=== PATIENT | male | born 1955 | race American Indian/Alaskan Native ===

== ENCOUNTER 2020-05-05 07:01 | Emergency (ER) | payer OTHER ==
[2020-05-05 07:09] VITALS: BP 156/86
[2020-05-05] MEDS ORDERED: KETOROLAC 60 MG/2 ML INJ IM ONE (07:20)
--- NOTE | 2020-05-05 07:23 | Emergency Department Report ---
ED ENT HPI - General Chief complaint: Sore Throat Stated complaint: THROAT PAIN Time Seen by Provider: 05/05/20 07:18 Source: patient Mode of arrival: Ambulatory Limitations: No Limitations - History of Present Illness Initial comments: 64-year-old male with a past medical history of diabetes and hyperlipidemia and tobacco use presents to the ER today complaint of 1 week history of sore throat. Patient reports pain with swallowing as a result he has been having difficulty tolerating p.o. fluids and liquids. He denies any drooling, difficulty opening his mouth. He denies any fever or chills. He denies any runny nose, nasal congestion or cough. He denies any ill contacts or recent travel. He reports no other symptoms at this time. MD complaint: sore throat, difficulty swallowing (sec to pain) -: Gradual, week(s) (1) - Related Data Previous Rx's Medication Instructions Recorded Last Taken Type Amoxicillin [Trimox CAP] 500 mg PO Q12H #20 capsule 05/05/20 Unknown Rx Ibuprofen [Motrin] 800 mg PO Q8HR PRN #30 tablet 05/05/20 Unknown Rx Allergies Allergy/AdvReac Type Severity Reaction Status Date / Time No Known Allergies Allergy Unverified 05/05/20 07:03 ED Dental HPI - General Chief complaint: Sore Throat Stated complaint: THROAT PAIN Time Seen by Provider: 05/05/20 07:18 Source: patient Mode of arrival: Ambulatory Limitations: No Limitations - Related Data Previous Rx's Medication Instructions Recorded Last Taken Type Amoxicillin [Trimox CAP] 500 mg PO Q12H #20 capsule 05/05/20 Unknown Rx Ibuprofen [Motrin] 800 mg PO Q8HR PRN #30 tablet 05/05/20 Unknown Rx Allergies Allergy/AdvReac Type Severity Reaction Status Date / Time No Known Allergies Allergy Unverified 05/05/20 07:03 ED Review of Systems ROS: Stated complaint: THROAT PAIN Other details as noted in HPI Comment: All other systems reviewed and negative Constitutional: denies: chills, fever Eyes: denies: eye pain, eye discharge, vision change ENT: throat pain. denies: ear pain, dental pain, hearing loss, epistaxis, congestion Respiratory: denies: cough, shortness of breath, wheezing Cardiovascular: denies: chest pain, palpitations Endocrine: no symptoms reported Gastrointestinal: denies: abdominal pain, nausea, diarrhea Musculoskeletal: denies: back pain, joint swelling, arthralgia Skin: denies: rash, lesions Neurological: denies: headache, weakness, paresthesias Psychiatric: denies: anxiety, depression Hematological/Lymphatic: denies: easy bleeding, easy bruising ED Past Medical Hx - Past Medical History Hx Diabetes: Yes - Surgical History Past Surgical History?: No - Social History Smoking Status: Current Every Day Smoker Substance Use Type: Alcohol - Medications Home Medications: Home Medications Medication Instructions Recorded Confirmed Last Taken Type Amoxicillin [Trimox CAP] 500 mg PO Q12H #20 capsule 05/05/20 Unknown Rx Ibuprofen [Motrin] 800 mg PO Q8HR PRN #30 tablet 05/05/20 Unknown Rx ED Physical Exam - General Limitations: No Limitations General appearance: alert, in no apparent distress - Head Head exam: Present: atraumatic, normocephalic, normal inspection - Eye Eye exam: Present: normal appearance, PERRL, EOMI Pupils: Present: normal accommodation - ENT ENT exam: Present: mucous membranes moist - Expanded ENT Exam Expanded Mouth exam: Absent: drooling, trismus, muffled voice, tongue normal, tongue elevation Throat exam: Positive: tonsillar erythema, tonsillomegaly. Negative: tonsillar exudate, R peritonsillar mass, L peritonsillar mass - Neck Neck exam: Present: normal inspection, full ROM, lymphadenopathy (Anterior cervical). Absent: tenderness, meningismus - Respiratory Respiratory exam: Absent: respiratory distress - Cardiovascular Cardiovascular Exam: Present: regular rate - GI/Abdominal GI/Abdominal exam: Absent: soft, distended, tenderness - Neurological Exam Neurological exam: Present: alert, oriented X3, CN II-XII intact, normal gait - Psychiatric Psychiatric exam: Present: normal affect, normal mood - Skin Skin exam: Present: intact ED Course Vital Signs 05/05/20 05/05/20 07:07 07:09 Temperature 99.3 F Pulse Rate 95 H Respiratory 20 Rate Blood Pressure 156/86 O2 Sat by Pulse 99 Oximetry ED Medical Decision Making - Medical Decision Making The patient is resting comfortably and is well-appearing and in no acute distress. There is no respiratory distress, no stridor and the mental status is normal. The neurological exam is normal, and there is no significant signs of dehydration. The history, exam, and the patient current condition does not suggest an infectious process such as meningitis, retropharyngeal abscess, epiglottitis, peritonsillar abscess, Abdifatah's angina, mastoiditis, orbital cellulitis, periorbital cellulitis, severe meningitis, malignant otitis externa, sepsis or any significant pathology warranting further testing, continued ED treatment, admission, consultation or any other evaluation at this time. The vital signs have been stable. The patient condition is stable and appropriate for discharge. Critical care attestation.: If time is entered above; I have spent that time in minutes in the direct care of this critically ill patient, excluding procedure time. ED Disposition Clinical Impression: Pharyngitis Disposition: - TO HOME OR SELFCARE Is pt being admited?: No Does the pt Need Aspirin: No Condition: Stable Instructions: Strep Throat, Adult, Pharyngitis, [id number] Additional Instructions: Take the motrin and the antibiotics as prescribed. Drink lots of fluids especially cold fluids will help throat. You can also do throat lozenges. Follow up with PCP in next few days. Return to ED if symptoms changes or worsens in anyway. Prescriptions: Ibuprofen [Motrin] 800 mg PO Q8HR PRN #30 tablet PRN Reason: Pain Amoxicillin [Trimox CAP] 500 mg PO Q12H #20 capsule Referrals: FRANCK GALLARDO MD [Staff Physician] - 3-5 Days Forms: Work/School Release Form(ED) Time of Disposition: 07:23
== END 2020-05-05 07:53 | disposition home or self-care (01) ==
LOC: ED 07:01
DX: J02.9 Acute pharyngitis, unspecified (principal); R13.10 Dysphagia, unspecified; E11.9 Type 2 diabetes mellitus without complications; F17.200 Nicotine dependence, unspecified, uncomplicated; Z79.1 Long term (current) use of non-steroidal anti-inflammatories (NSAID); Z79.2 Long term (current) use of antibiotics
CPT/HCPCS: 96372; 99282; J1885

== ENCOUNTER 2020-09-04 09:06 | Inpatient (IN) | payer OTHER ==
[2020-09-04] MEDS ORDERED: ASPIRIN 325 MG TAB PO ONE (09:33)
--- NOTE | 2020-09-04 09:51 | Emergency Department Report ---
ED Chest Pain HPI - General Chief Complaint: Chest Pain Stated Complaint: CHEST PAIN Time Seen by Provider: 09/04/20 09:35 Source: patient Mode of arrival: Ambulatory Limitations: No Limitations - History of Present Illness Initial Comments: This is a 64-year-old -[place] male who presents to the emergency department with a complaint of intermittent midsternal chest pain that has been going on over the past month. He says that the pain really increases with any type of exertion. When asked about associated shortness of breath, the patient says "well I am a smoker, so I am always short of breath." He denies any fever, cough, lower extremity swelling, nausea, vomiting, back pain, diaphoresis. He has a past medical history of hypertension, diabetes, high cholesterol. He denies any family history and his nuclear family of early heart attack. No recent travel or sick contacts at home. He has not taken anything for his symptoms prior to presentation. - Related Data Home Medications Medication Instructions Recorded Confirmed Last Taken AtorvaSTATin [Lipitor] 20 mg PO QHS 09/04/20 09/04/20 Unknown Benzocaine/Menthol [Sore Throat 1 each MM PRN PRN 09/04/20 09/04/20 Unknown Lozenges] Insulin Detemir [Levemir Flextouch] 22 unit SQ QHS 09/04/20 09/04/20 Unknown Insulin Lispro [Humalog Marco A 7 unit SQ TID 09/04/20 09/04/20 Unknown Kwikpen] Tamsulosin [Flomax] 0.4 mg PO QDAY 09/04/20 09/04/20 Unknown Allergies Allergy/AdvReac Type Severity Reaction Status Date / Time No Known Allergies Allergy Verified 09/04/20 09:59 Heart Score - HEART Score History: Moderately suspicious EKG: Non-specific Age: 45-65 Risk factors: > 3 risk factors or hx of atherosclerotic disease Troponin: < normal limit HEART Score: 5 - EKG Read Time Time EKG Completed: :17 EKG Read Time: 09:24 - Critical Actions Critical Actions: 4-6 pts:12-16.6% risk of adverse cardiac event. Should be admitted ED Review of Systems ROS: Stated complaint: CHEST PAIN Other details as noted in HPI Comment: All other systems reviewed and negative Constitutional: denies: chills, fever Eyes: denies: eye pain, vision change ENT: denies: ear pain, throat pain Respiratory: shortness of breath. denies: cough Cardiovascular: chest pain. denies: palpitations Gastrointestinal: denies: abdominal pain, vomiting Genitourinary: denies: dysuria, discharge Musculoskeletal: denies: back pain, arthralgia Skin: denies: rash, lesions Neurological: denies: headache, weakness ED Past Medical Hx - Past Medical History Previous Medical History?: Yes Hx Diabetes: Yes Additional medical history: High cholesterol - Surgical History Past Surgical History?: No - Social History Smoking Status: Current Every Day Smoker Substance Use Type: Alcohol - Medications Home Medications: Home Medications Medication Instructions Recorded Confirmed Last Taken Type AtorvaSTATin [Lipitor] 20 mg PO QHS 09/04/20 09/04/20 Unknown History Benzocaine/Menthol [Sore Throat 1 each MM PRN PRN 09/04/20 09/04/20 Unknown H istory Lozenges] Insulin Detemir [Levemir Flextouch] 22 unit SQ QHS 09/04/20 09/04/20 Unknown History Insulin Lispro [Humalog Marco A 7 unit SQ TID 09/04/20 09/04/20 Unknown History Kwikpen] Tamsulosin [Flomax] 0.4 mg PO QDAY 09/04/20 09/04/20 Unknown History ED Physical Exam - General Limitations: No Limitations - Other Other exam information: GENERAL: The patient is well-developed well-nourished. HENT: Normocephalic. Atraumatic. Patient has moist mucous membranes. EYES: Extraocular motions are intact. NECK: Supple. Trachea is midline. CHEST/LUNGS: Clear to auscultation. There is no respiratory distress noted. Chest pain is not reproducible to palpation of the chest wall. HEART/CARDIOVASCULAR: Regular. There is no tachycardia. There is no murmur. ABDOMEN: Abdomen is soft, nontender. Patient has normal bowel sounds. There is no abdominal distention. SKIN: Skin is warm and dry. NEURO: The patient is awake, alert, and oriented. The patient is cooperative. The patient has no focal neurologic deficits. Normal speech. MUSCULOSKELETAL: There is no tenderness or deformity. There is no limitation range of motion. ED Course Vital Signs 09/04/20 09/04/20 09/04/20 09:30 09:38 09:45 Temperature 98 F Pulse Rate 69 70 61 Respiratory 20 19 18 Rate Blood Pressure 186/101 179/97 O2 Sat by Pulse 98 98 97 Oximetry 09/04/20 09/04/20 09/04/20 10:01 10:15 10:56 Temperature Pulse Rate 65 72 Respiratory 12 11 L Rate Blood Pressure 179/97 171/81 171/81 O2 Sat by Pulse 95 97 98 Oximetry 09/04/20 09/04/20 09/04/20 11:01 11:15 11:31 Temperature Pulse Rate Respiratory Rate Blood Pressure 171/81 183/97 171/81 O2 Sat by Pulse 99 96 97 Oximetry 09/04/20 09/04/20 12:01 13:01 Temperature Pulse Rate Respiratory Rate Blood Pressure 170/84 147/90 O2 Sat by Pulse 97 97 Oximetry PAULINE score - Pauline Score Age > 65: (0) No Aspirin use within the Past 7 Days: (0) No 3 or more CAD Risk Factors: (1) Yes 2 or more Angina events in past 24 hrs: (1) Yes Known CAD with more than 50% Stenosis: (0) No Elevated Cardiac Markers: (0) No ST Deviation Greater than 0.5mm: (1) Yes PAULINE Score: 3 ED Medical Decision Making - Lab Data Result diagrams: 09/04/20 09:48 09/04/20 09:48 Lab Results 09/04/20 09/04/20 09/04/20 Range/Units 09:48 09:48 09:53 WBC 5.7 (4.5-11.0) K/mm3 RBC 4.98 (3.65-5.03) M/mm3 Hgb 16.1 H (11.8-15.2) gm/dl Hct 46.1 H (35.5-45.6) % MCV 93 (84-94) fl MCH 32 (28-32) pg MCHC 35 H (32-34) % RDW 13.9 (13.2-15.2) % Plt Count 196 (140-440) K/mm3 Lymph % (Auto) 34.4 (13.4-35.0) % [place] % (Auto) 7.3 (0.0-7.3) % Eos % (Auto) 2.2 (0.0-4.3) % Baso % (Auto) 1.3 (0.0-1.8) % Lymph # (Auto) 1.9 (1.2-5.4) K/mm3 [place] # (Auto) 0.4 (0.0-0.8) K/mm3 Eos # (Auto) 0.1 (0.0-0.4) K/mm3 Baso # (Auto) 0.1 (0.0-0.1) K/mm3 Seg Neutrophils % 54.8 (40.0-70.0) % Seg Neutrophils # 3.1 (1.8-7.7) K/mm3 PT 13.0 (12.2-14.9) Sec. INR 0.93 (0.87-1.13) Sodium 135 L (137-145) mmol/L Potassium 4.8 (3.6-5.0) mmol/L Chloride 99.2 (98-107) mmol/L Carbon Dioxide 30 (22-30) mmol/L Anion Gap 11 mmol/L BUN 16 (9-20) mg/dL Creatinine 1.0 (0.8-1.3) mg/dL Estimated GFR > 60 ml/min BUN/Creatinine Ratio 16 % Glucose 250 H (75-100) mg/dL Calcium 9.8 (8.4-10.2) mg/dL Total Bilirubin 0.30 (0.1-1.2) mg/dL AST 18 (5-40) units/L ALT 24 (7-56) units/L Alkaline Phosphatase 61 (35-129) units/L Troponin T < 0.010 (0.00-0.029) ng/mL Total Protein 6.8 (6.3-8.2) g/dL Albumin 4.5 (3.9-5) g/dL Albumin/Globulin Ratio 2.0 % 09/04/20 Range/Units 12:21 WBC (4.5-11.0) K/mm3 RBC (3.65-5.03) M/mm3 Hgb (11.8-15.2) gm/dl Hct (35.5-45.6) % MCV (84-94) fl MCH (28-32) pg MCHC (32-34) % RDW (13.2-15.2) % Plt Count (140-440) K/mm3 Lymph % (Auto) (13.4-35.0) % [place] % (Auto) (0.0-7.3) % Eos % (Auto) (0.0-4.3) % Baso % (Auto) (0.0-1.8) % Lymph # (Auto) (1.2-5.4) K/mm3 [place] # (Auto) (0.0-0.8) K/mm3 Eos # (Auto) (0.0-0.4) K/mm3 Baso # (Auto) (0.0-0.1) K/mm3 Seg Neutrophils % (40.0-70.0) % Seg Neutrophils # (1.8-7.7) K/mm3 PT (12.2-14.9) Sec. INR (0.87-1.13) Sodium (137-145) mmol/L Potassium (3.6-5.0) mmol/L Chloride (98-107) mmol/L Carbon Dioxide (22-30) mmol/L Anion Gap mmol/L BUN (9-20) mg/dL Creatinine (0.8-1.3) mg/dL Estimated GFR ml/min BUN/Creatinine Ratio % Glucose (75-100) mg/dL Calcium (8.4-10.2) mg/dL Total Bilirubin (0.1-1.2) mg/dL AST (5-40) units/L ALT (7-56) units/L Alkaline Phosphatase (35-129) units/L Troponin T < 0.010 (0.00-0.029) ng/mL Total Protein (6.3-8.2) g/dL Albumin (3.9-5) g/dL Albumin/Globulin Ratio % - EKG Data -: EKG Interpreted by Ct EKG shows normal: sinus rhythm, axis, intervals, QRS complexes, ST-T waves (T wave inversions to the anterolateral leads, mild ST depressions to the lateral leads) Rate: normal - EKG Data When compared to previous EKG there are: previous EKG unavailable Interpretation: other (Sinus rhythm at 68 bpm, normal axis, normal intervals. T wave inversions in the anterolateral leads. Mild ST depression to the high lateral leads.) - Radiology Data Radiology results: image reviewed interpreted by ma: Chest x-ray does not show any acute process. There are no pleural effusions, obvious pneumonia and there is no pneumothorax. No widened mediastinum - Medical Decision Making This patient presents to the emergency department with midsternal chest pain that has been going on intermittently over the past month but has worsened recently and also increases with exertion. EKG shows some ischemic changes with anterolateral T wave inversions and some mild high lateral ST depressions. No ST elevation [place]. Chest x-ray does not show any pneumonia, pleural effusions, pneumothorax, widened mediastinum, or any other acute process. Labs have thus far been mostly unremarkable including CBC, metabolic panel and negative troponins x2. Patient has a moderate heart and PAULINE score. He will be admitted to the hospital for further evaluation and treatment, most likely a stress test in the a.m., and was accepted for admission by the hospitalist, Dr. Boogie. Critical Care Time: No Critical care attestation.: If time is entered above; I have spent that time in minutes in the direct care of this critically ill patient, excluding procedure time. ED Disposition Clinical Impression: Angina at rest Chest pain Qualifiers: Chest pain type: unspecified Qualified Code(s): R07.9 - Chest pain, unspecified Hypertension Qualifiers: Hypertension type: primary hypertension Qualified Code(s): I10 - Essential (primary) hypertension Disposition: 09 OP ADMIT IP TO THIS HOSP Is pt being admited?: Yes Condition: Fair Instructions: Hypertension (ED) Time of Disposition: 14:31
[2020-09-04 10:12] LABS: Basophils # (Auto) 0.1 K/mm3 (0.0-0.1); Basophils % (Auto) 1.3 % (0.0-1.8); Eosinophils # (Auto) 0.1 K/mm3 (0.0-0.4); Eosinophils % (Auto) 2.2 % (0.0-4.3); Hematocrit 46.1 % (35.5-45.6); Hemoglobin 16.1 gm/dl (11.8-15.2); Lymphocytes # (Auto) 1.9 K/mm3 (1.2-5.4); Lymphocytes % (Auto) 34.4 % (13.4-35.0); Mean Corpuscular HGB Conc 35 % (32-34); Mean Corpuscular Volume 93 fl (84-94); Monocytes # (Auto) 0.4 K/mm3 (0.0-0.8); Monocytes % (Auto) 7.3 % (0.0-7.3); Platelet Count 196 K/mm3 (140-440); Red Blood Count 4.98 M/mm3 (3.65-5.03); Red Cell Distribution Width 13.9 % (13.2-15.2)
[2020-09-04 10:28] LABS: INR 0.93 (0.87-1.13)
[2020-09-04 10:33] LABS: Alanine Aminotransferase 24 units/L (7-56); Albumin 4.5 g/dL (3.9-5); BUN/Creatinine Ratio 16; Blood Urea Nitrogen 16 mg/dL (9-20); Calcium 9.8 mg/dL (8.4-10.2); Hemolysis Index 13
--- NOTE | 2020-09-04 10:38 | XRay Report ---
CHEST 2 VIEWS INDICATION / CLINICAL INFORMATION: chest pain. Chest pain with exertion. COMPARISON: None available. FINDINGS: SUPPORT DEVICES: None. HEART / MEDIASTINUM: No significant abnormality. LUNGS / PLEURA: No significant pulmonary or pleural abnormality. No pneumothorax. ADDITIONAL FINDINGS: No significant additional findings. IMPRESSION: 1. No acute findings. Signer Name: Viviana Alfredo MD Signed: 09/04/2020 10:34 AM Workstation Name: [id number]
[2020-09-04] MEDS ORDERED: hydrALAZINE 20 MG/1 ML INJ IV ONE (10:41)
[2020-09-04] MEDS ORDERED: MORPHINE 2 MG/1 ML INJ IV PRN (21:11)
[2020-09-04] MEDS ORDERED: ONDANSETRON 4 MG/2 ML INJ IV PRN (21:11)
[2020-09-04] MEDS ORDERED: ACETAMINOPHEN 325 MG TAB PO PRN (21:11)
[2020-09-04] MEDS ORDERED: oxyCODONE /ACETAMINOPHEN 5-325MG TAB PO PRN (21:11)
[2020-09-04] MEDS ORDERED: SODIUM CHLORIDE 0.9% 1000 ML 1,000 ML IV SCH (21:15)
--- NOTE | 2020-09-04 21:18 | History and Physical Report ---
History of Present Illness Date of examination: 09/04/20 Date of admission: 09/04/20 19:04 Chief complaint: Chest pain since a.m. History of present illness: 65-year-old -[place] male with history of hypertension, insulin- dependent diabetes and BPH comes in for intermittent chest pain since 1 month more so for today. Increases with any exertion. Also associated shortness of breath. Patient also bedtime smoker-I was 1 pack a day. No fever or chills. N o stents in the past. Chest pain is about 8 on a scale of 1-10. Nonradiating. No diaphoresis. No palpitations. Intermittent in nature. Heart Score - HEART Score History: Moderately suspicious EKG: Non-specific Age: 45-65 Risk factors: > 3 risk factors or hx of atherosclerotic disease Troponin: < normal limit HEART Score: 5 - Past Medical History Previous Medical History?: Yes --Diabetes: Yes --Hypertension --high cholesterol - Surgical History Past Surgical History?: No - Social History Smoking Status: Current Every Day Smoker Substance Use Type: Alcohol - Medications Home Medications: Home Medications Medication Instructions Recorded Confirmed Last Taken Type AtorvaSTATin [Lipitor] 20 mg PO QHS 09/04/20 09/04/20 Unknown History Benzocaine/Menthol [Sore Throat 1 each MM PRN PRN 09/04/20 09/04/20 Unknown History Lozenges] Insulin Detemir [Levemir Flextouch] 22 unit SQ QHS 09/04/20 09/04/20 Unknown History Insulin Lispro [Humalog Marco A 7 unit SQ TID 09/04/20 09/04/20 Unknown History Kwikpen] Tamsulosin [Flomax] 0.4 mg PO QDAY 09/04/20 09/04/20 Unknown History Review of Systems ROS: Stated complaint: CHEST PAIN Other details as noted in HPI Comment: All other systems reviewed and negative Constitutional: denies: chills, fever Eyes: denies: eye pain, vision change ENT: denies: ear pain, throat pain Respiratory: shortness of breath. denies: cough Cardiovascular: chest pain. denies: palpitations Gastrointestinal: denies: abdominal pain, vomiting Genitourinary: denies: dysuria, discharge Musculoskeletal: denies: back pain, arthralgia Skin: denies: rash, lesions Neurological: denies: headache, weakness Medications and Allergies Allergies Allergy/AdvReac Type Severity Reaction Status Date / Time No Known Allergies Allergy Verified 09/04/20 09:59 Home Medications Medication Instructions Recorded Confirmed Last Taken Type AtorvaSTATin [Lipitor] 20 mg PO QHS 09/04/20 09/04/20 Unknown History Benzocaine/Menthol [Sore Throat 1 each MM PRN PRN 09/04/20 09/04/20 Unknown Hist ory Lozenges] Insulin Detemir [Levemir Flextouch] 22 unit SQ QHS 09/04/20 09/04/20 Unknown H istory Insulin Lispro [Humalog Marco A 7 unit SQ TID 09/04/20 09/04/20 Unknown History Kwikpen] Tamsulosin [Flomax] 0.4 mg PO QDAY 09/04/20 09/04/20 Unknown History Exam - Constitutional Vitals: Temp Pulse Resp BP Pulse Ox 98 F 63 25 H 169/101 98 09/04/20 19:30 09/04/20 20:01 09/04/20 20:01 09/04/20 20:01 09/04/20 20:01 General appearance: Present: no acute distress, well-nourished - EENT Eyes: Present: PERRL ENT: hearing intact, clear oral mucosa - Neck Neck: Present: supple, normal ROM - Respiratory Respiratory effort: normal Respiratory: bilateral: CTA - Cardiovascular Heart rate: 78 Rhythm: regular Heart Sounds: Present: S1 & S2. Absent: rub, click - Extremities Extremities: no ischemia, pulses intact, pulses symmetrical, No edema Peripheral Pulses: within normal limits - Abdominal General gastrointestinal: Present: soft, non-tender, non-distended, normal bowel sounds Male genitourinary: Present: normal - Rectal Rectal Exam: deferred - Integumentary Integumentary: Present: clear, warm, dry - Musculoskeletal Musculoskeletal: gait normal, strength equal bilaterally - Psychiatric Psychiatric: appropriate mood/affect, intact judgment & insight - Neurologic Neurologic: CNII-XII intact, moves all extremities - Allied Health Allied health notes reviewed: nursing, case management HEART Score - HEART Score EKG: Non-specific Age: 45-65 Risk factors: > 3 risk factors or hx of atherosclerotic disease Troponin: Troponin T < 0.010 ng/mL (0.00-0.029) 09/04/20 15:25 Troponin: < normal limit - Critical Actions Critical Actions: 4-6 pts:12-16.6% risk of adverse cardiac event. Should be admitted Results - Labs CBC & Chem 7: 09/05/20 04:24 09/05/20 04:24 Labs: Laboratory Last Values WBC 5.7 K/mm3 (4.5-11.0) 09/04/20 09:48 RBC 4.98 M/mm3 (3.65-5.03) 09/04/20 09:48 Hgb 16.1 gm/dl (11.8-15.2) H 09/04/20 09:48 Hct 46.1 % (35.5-45.6) H 09/04/20 09:48 MCV 93 fl (84-94) 09/04/20 09:48 MCH 32 pg (28-32) 09/04/20 09:48 MCHC 35 % (32-34) H 09/04/20 09:48 RDW 13.9 % (13.2-15.2) 09/04/20 09:48 Plt Count 196 K/mm3 (140-440) 09/04/20 09:48 Lymph % (Auto) 34.4 % (13.4-35.0) 09/04/20 09:48 [place] % (Auto) 7.3 % (0.0-7.3) 09/04/20 09:48 Eos % (Auto) 2.2 % (0.0-4.3) 09/04/20 09:48 Baso % (Auto) 1.3 % (0.0-1.8) 09/04/20 09:48 Lymph # (Auto) 1.9 K/mm3 (1.2-5.4) 09/04/20 09:48 [place] # (Auto) 0.4 K/mm3 (0.0-0.8) 09/04/20 09:48 Eos # (Auto) 0.1 K/mm3 (0.0-0.4) 09/04/20 09:48 Baso # (Auto) 0.1 K/mm3 (0.0-0.1) 09/04/20 09:48 Seg Neutrophils % 54.8 % (40.0-70.0) 09/04/20 09:48 Seg Neutrophils # 3.1 K/mm3 (1.8-7.7) 09/04/20 09:48 PT 13.0 Sec. (12.2-14.9) 09/04/20 09:53 INR 0.93 (0.87-1.13) 09/04/20 09:53 Sodium 135 mmol/L (137-145) L 09/04/20 09:48 Potassium 4.8 mmol/L (3.6-5.0) 09/04/20 09:48 Chloride 99.2 mmol/L (98-107) 09/04/20 09:48 Carbon Dioxide 30 mmol/L (22-30) 09/04/20 09:48 Anion Gap 11 mmol/L 09/04/20 09:48 BUN 16 mg/dL (9-20) 09/04/20 09:48 Creatinine 1.0 mg/dL (0.8-1.3) 09/04/20 09:48 Estimated GFR > 60 ml/min 09/04/20 09:48 BUN/Creatinine Ratio 16 % 09/04/20 09:48 Glucose 250 mg/dL (75-100) H 09/04/20 09:48 Calcium 9.8 mg/dL (8.4-10.2) 09/04/20 09:48 Total Bilirubin 0.30 mg/dL (0.1-1.2) 09/04/20 09:48 AST 18 units/L (5-40) 09/04/20 09:48 ALT 24 units/L (7-56) 09/04/20 09:48 Alkaline Phosphatase 61 units/L (35-129) 09/04/20 09:48 Troponin T < 0.010 ng/mL (0.00-0.029) 09/04/20 15:25 Total Protein 6.8 g/dL (6.3-8.2) 09/04/20 09:48 Albumin 4.5 g/dL (3.9-5) 09/04/20 09:48 Albumin/Globulin Ratio 2.0 % 09/04/20 09:48 - Imaging and Cardiology EKG: report reviewed (Heart rate of 68/min sinus rhythm no acute ST-T wave changes. LVH by voltage criteriaChest x-ray) Chest x-ray: report reviewed (No acute findings) Agarwal/IV: Voiding Method Toilet Assessment and Plan Advance Directives: Yes (Full code) VTE prophylaxis?: Chemical Plan of care discussed with patient/family: Yes - Patient Problems (1) Acute coronary syndrome Current Visit: Yes Status: Acute Plan to address problem: Chest pain rule out [place] protocol Serial troponins Lexiscan in the morning (2) Hypertension Current Visit: Yes Status: Chronic Qualifiers: Hypertension type: primary hypertension Qualified Code(s): I10 - Essential (primary) hypertension Plan to address problem: Continue antihypertensives and adjust medications (3) IDDM (insulin dependent diabetes mellitus) Current Visit: Yes Status: Chronic Plan to address problem: Check hemoglobin A1c Continue home insulin and coverage (4) BPH (benign prostatic hyperplasia) Current Visit: Yes Status: Chronic Qualifiers: Lower urinary tract symptom presence: symptoms present Plan to address problem: Continue Flomax (5) DVT prophylaxis Current Visit: Yes Status: Acute Plan to address problem: On heparin and GI prophylaxis
[2020-09-04] MEDS ORDERED: INSULIN GLARGINE 100 UNITS/ML SUB-Q SCH (22:00)
[2020-09-04] MEDS ORDERED: NON-FORMULARY EACH (Insulin Detemir [Levemir Flextouch] 100 UNIT/ML Insuln.Pen) SQ SCH (22:00)
[2020-09-04] MEDS: TAMSULOSIN 0.4 MG CAP PO SCH (22:06)
[2020-09-04] MEDS: INSULIN LISPRO 100 UNIT/ML SUB-Q SCH (22:06)
[2020-09-04] MEDS: FAMOTIDINE 20 MG/2 ML INJ IV SCH (22:06)
[2020-09-04] MEDS: HEPARIN 5,000 UNIT/1 ML VIAL SUB-Q SCH (22:06)
[2020-09-05 06:03] LABS: Basophils % (Auto) 0.4 % (0.0-1.8); Eosinophils # (Auto) 0.1 K/mm3 (0.0-0.4); Eosinophils % (Auto) 2.5 % (0.0-4.3); Hematocrit 45.1 % (35.5-45.6); Hemoglobin 15.4 gm/dl (11.8-15.2); Lymphocytes % (Auto) 37.3 % (13.4-35.0); Mean Corpuscular HGB Conc 34 % (32-34); Mean Corpuscular Volume 92 fl (84-94); Monocytes # (Auto) 0.4 K/mm3 (0.0-0.8); Monocytes % (Auto) 6.7 % (0.0-7.3); Platelet Count 209 K/mm3 (140-440); Red Blood Count 4.89 M/mm3 (3.65-5.03); Red Cell Distribution Width 13.8 % (13.2-15.2)
[2020-09-05 06:26] LABS: Alanine Aminotransferase 20 units/L (7-56); Albumin 4.2 g/dL (3.9-5); BUN/Creatinine Ratio 17; Blood Urea Nitrogen 15 mg/dL (9-20); Calcium 9.1 mg/dL (8.4-10.2); Hemolysis Index 10
[2020-09-05] MEDS ORDERED: REGADENOSON 0.4 MG/5 ML INJ IV ONE (07:57)
[2020-09-05] MEDS: INSULIN LISPRO 100 UNIT/ML SUB-Q SCH ×4 (08:11→22:09)
--- NOTE | 2020-09-05 08:27 | Consultation ---
History of Present Illness Consult date: 09/05/20 Requesting physician: SHI GARCIA Consult reason: chest pain History of present illness: Pt is a 64-year-old AA male with a hx of HTN, poorly controlled DM, and tobacco abuse (1 PPD), who presented with complaints of intermittent chest pain x 1 month. Chest pain is substernal, non-radiating. Occurs with exertion. Associated with SOB. No additional cardiac complaints. Trop neg x 3. ECG reveals SR w/LVH and deep T wave inversions in anterior and lateral leads. CXR reveals no acute findings. Upson Classification III. Pt is previously unknown to our practice. No prior cardiac workup available for review. Past History Past Medical History: diabetes, hypertension Past Surgical History: denies: valve replacement, CABG, PTCA Social history: smoking. denies: alcohol abuse Family history: diabetes Medications and Allergies Allergies Allergy/AdvReac Type Severity Reaction Status Date / Time No Known Allergies Allergy Verified 09/04/20 09:59 Home Medications Medication Instructions Recorded Confirmed Last Taken Type AtorvaSTATin [Lipitor] 20 mg PO QHS 09/04/20 09/04/20 Unknown History Benzocaine/Menthol [Sore Throat 1 each MM PRN PRN 09/04/20 09/04/20 Unknown History Lozenges] Insulin Detemir [Levemir Flextouch] 22 unit SQ QHS 09/04/20 09/04/20 Unknown History Insulin Lispro [Humalog Marco A 7 unit SQ TID 09/04/20 09/04/20 Unknown History Kwikpen] Tamsulosin [Flomax] 0.4 mg PO QDAY 09/04/20 09/04/20 Unknown History Active Meds: Active Medications Acetaminophen (Acetaminophen 325 Mg Tab) 650 mg PO Q4H PRN PRN Reason: Pain MILD(1-3)/Fever >100.5/CHANEY Atorvastatin Calcium (Atorvastatin 20 Mg Tab) 20 mg PO QHS [facility] Last Admin: 09/04/20 22:06 Dose: 20 mg Documented by: Famotidine (Famotidine 20 Mg/2 Ml Inj) 20 mg IV BID [facility] Last Admin: 09/04/20 22:06 Dose: 20 mg Documented by: Heparin Sodium (Porcine) (Heparin 5,000 Unit/1 Ml Vial) 5,000 unit SUB-Q Q12HR [facility] Last Admin: 07/04/21 22:06 Dose: 5,000 unit Documented by: Sodium Chloride (Nacl 0.9% 1000 Ml) 1,000 mls @ 75 mls/hr IV DIRECT [facility] Last Admin: 09/04/20 22:07 Dose: 75 mls/hr Documented by: Insulin Glargine (Insulin Glargine 100 Units/Ml) 22 units SUB-Q QHS [facility] Last Admin: 09/04/20 22:20 Dose: 22 units Documented by: Insulin Human Lispro (Insulin Lispro 100 Unit/Ml) 0 unit SUB-Q ACHS [facility]; Protocol Last Admin: 09/05/20 08:11 Dose: Not Given Documented by: Morphine Sulfate (Morphine 2 Mg/1 Ml Inj) 2 mg IV Q4H PRN PRN Reason: Pain, Moderate (4-6) Ondansetron HCl (Ondansetron 4 Mg/2 Ml Inj) 4 mg IV Q8H PRN PRN Reason: Nausea And Vomiting Oxycodone/Acetaminophen (Oxycodone /Acetaminophen 5-325mg Tab) 1 tab PO Q6H PRN PRN Reason: Pain, Moderate (4-6) Sodium Chloride (Sodium Chloride 0.9% 10 Ml Flush Syringe) 10 ml IV BID [facility] Last Admin: 09/04/20 22:07 Dose: 10 ml Documented by: Sodium Chloride (Sodium Chloride 0.9% 10 Ml Flush Syringe) 10 ml IV PRN PRN PRN Reason: LINE FLUSH Tamsulosin HCl (Tamsulosin 0.4 Mg Cap) 0.4 mg PO QDAY@2200 [facility] Last Admin: 09/04/20 22:06 Dose: 0.4 mg Documented by: Review of Systems Constitutional: no fever, no chills Ears, nose, mouth and throat: no nasal congestion, no sore throat Cardiovascular: chest pain, shortness of breath, dyspnea on exertion, no orthopnea, no palpitations, no edema, no syncope, no lightheadedness, no paroxysmal nocturnal dyspnea, no claudication Respiratory: shortness of breath, dyspnea on exertion, no cough Gastrointestinal: no abdominal pain, no nausea, no vomiting Genitourinary Male: no dysuria, no flank pain Musculoskeletal: no neck stiffness, no neck pain Integumentary: no rash, no wounds Neurological: no head injury, no paralysis, no numbness, no tingling, no seizures, no syncope, no vertigo, no headaches Endocrine: no cold intolerance, no heat intolerance Hematologic/Lymphatic: no easy bruising, no easy bleeding Allergic/Immunologic: no anaphylaxis Physical Examination Last Vital Signs Temp 98.0 F 09/05/20 07:13 Pulse 79 09/05/20 07:13 Resp 18 09/05/20 07:13 BP 142/87 09/05/20 07:13 Pulse Ox 98 09/05/20 07:13 General appearance: no acute distress HEENT: Positive: EOMI, Normocephaly, Mucus Membranes Moist Neck: Positive: neck supple, trachea midline. Negative: JVD/HJR Cardiac: Positive: Reg Rate and Rhythm, S1/S2 Lungs: Positive: clear to auscultation Neuro: Positive: Grossly Intact Abdomen: Positive: Soft. Negative: Tender Skin: Negative: Rash Musculoskeletal: No Pain Extremities: Present: lower extr. pulses. Absent: edema Results 09/05/20 04:24 09/05/20 04:24 Cardiac Enzymes 09/04/20 09/05/20 Range/Units 09:48 04:24 AST 18 17 (5-40) units/L Coagulation 09/04/20 Range/Units 09:53 PT 13.0 (12.2-14.9) Sec. INR 0.93 (0.87-1.13) CBC 09/04/20 09/05/20 Range/Units 09:48 04:24 WBC 5.7 5.4 (4.5-11.0) K/mm3 RBC 4.98 4.89 (3.65-5.03) M/mm3 Hgb 16.1 H 15.4 H (11.8-15.2) gm/dl Hct 46.1 H 45.1 (35.5-45.6) % Plt Count 196 209 (140-440) K/mm3 Lymph # (Auto) 1.9 2.0 (1.2-5.4) K/mm3 [place] # (Auto) 0.4 0.4 (0.0-0.8) K/mm3 Eos # (Auto) 0.1 0.1 (0.0-0.4) K/mm3 Baso # (Auto) 0.1 0.0 (0.0-0.1) K/mm3 Comprehensive Metabolic Panel 09/04/20 09/05/20 Range/Units 09:48 04:24 Sodium 135 L 135 L (137-145) mmol/L Potassium 4.8 4.1 (3.6-5.0) mmol/L Chloride 99.2 100.4 (98-107) mmol/L Carbon Dioxide 30 26 (22-30) mmol/L BUN 16 15 (9-20) mg/dL Creatinine 1.0 0.9 (0.8-1.3) mg/dL Glucose 250 H 237 H (75-100) mg/dL Calcium 9.8 9.1 (8.4-10.2) mg/dL AST 18 17 (5-40) units/L ALT 24 20 (7-56) units/L Alkaline Phosphatase 61 59 (35-129) units/L Total Protein 6.8 5.9 L (6.3-8.2) g/dL Albumin 4.5 4.2 (3.9-5) g/dL - Imaging and Cardiology Echo: pending Cardiac cath: pending EKG: report reviewed, image reviewed - EKG Interpretation EKG: no acute changes EKG interpretations - EKG Sinus rhythms and dysrhythmias: sinus rhythm Chamber hypertrophy or enlargement: left ventricular hypertro Additional Comments: deep T wave inversions in anterior & lateral leads Assessment and Plan Echo pending. Lexiscan stress MPI this AM revealed a small inferior defect. Plan for LHC in AM. NPO after midnight. Will add BB and ACEI. Discontinue Amlodipine. Pt seen in conjunction with Dr. Polk, who agrees with the assessment and plan of care. - Patient Problems (1) Unstable angina Current Visit: Yes Status: Acute (2) Abnormal ECG Current Visit: Yes Status: Acute (3) Hypertension Current Visit: Yes Status: Chronic Qualifiers: Hypertension type: primary hypertension Qualified Code(s): I10 - Essential (primary) hypertension (4) IDDM (insulin dependent diabetes mellitus) Current Visit: Yes Status: Chronic (5) Tobacco abuse Current Visit: Yes Status: Chronic
[2020-09-05] MEDS: ASPIRIN 81 MG TAB CHEW PO SCH (10:27)
[2020-09-05] MEDS: METOPROLOL TARTRATE 25 MG TAB PO SCH ×2 (10:28→22:11)
[2020-09-05] MEDS: HEPARIN 5,000 UNIT/1 ML VIAL SUB-Q SCH ×2 (10:28→22:08)
[2020-09-05] MEDS: FAMOTIDINE 20 MG/2 ML INJ IV SCH ×2 (10:28→22:10)
[2020-09-05] MEDS: LISINOPRIL 20 MG TAB PO SCH (10:28)
--- NOTE | 2020-09-05 10:29 | Nuclear Medicine Report ---
APPROVED REPORT Exam: Nuclear Stress Test Indication: Chest pain Patient Location: [address] [place] [address] Room #: 451 Ht: 5 ft 11 in Wt: 212 lbs BSA: 2.16 m2 HR: 64 bpmBP: 165/93 mmHgBMI: 29.56 Medical History Medical History: Diabetes, HTN Stress Test Details Stress Test: Pharmacologic stress testing performed using 0.4 mg of regadenoson per 5 mL given IV over 10 seconds. Reason for pharmacologic stress test: physical limitation. HR Resting HR: 64 bpm Max HR Achieved: 100 bpm Max Heart Rate (APMHR): 158.666993 bpm Target HR (85% APMHR): 134.847031 bpm % of APMHR: 63.29 BP Resting BP: 165/93 mmHg Max BP: 198/104 mmHg ECG Resting ECG: SINUS RHYTHM WITH ST-T ABNORMALITIES, , Clear, Sinus Rhythm, Sinus Bradycardia Clinical Reason for Termination: Completed protocol Stress Symptoms: None NM EXAM: Myocardial Perfusion REST/STRESS Imaging Protocol: Rest Tc-99m/Stress Tc-99m 1 day Resting Data Rest SPECT myocardial perfusion imaging was performed in supine position 45 minutes following the intravenous injection of 10 mCi of Tc-99m Myoview. Time of rest injection: 0700 Pharmacologic Stress Pharmacologic stress test was performed by injecting Regadenoson 0.4 mg IV push followed by the intravenous injection of 28 mCi of Tc-99m Myoview. Time of stress injection: 0910 Gated Stress SPECT was performed 30 minutes after stress injection. Study Data TID = 1.10. Perfusion Nuclear Conclusion ECG Findings: negative for ischemia Clinical Findings: positive for ischemia Nuclear Findings: positive for ischemia Exercise Capacity: not assessed Left Ventricular Function: abnormal negative lexiscan ekg There is a small area of mildly reduced uptake in the mid segment of the inferior wall which is seen on the stress images and normalizes on the resting images. ef 44%, echo for correlation
--- NOTE | 2020-09-05 12:21 | Progress Note ---
Assessment and Plan - Patient Problems (1) Acute coronary syndrome Current Visit: Yes Status: Acute Plan to address problem: Patient with acute coronary syndrome. Symptoms consistent with coronary artery disease. Patient appears to be ruling out via cardiac isoenzymes no significant findings on EKG. Patient description of chest pain however very typical. Awaiting stress test results. Cardiology aware. Patient going for stress test today. (2) Unstable angina Current Visit: Yes Status: Acute Plan to address problem: We will treat as needed nitroglycerin. Await stress test results. Whether patient candidate for PCI (3) Hypertension Current Visit: Yes Status: Chronic Qualifiers: Hypertension type: primary hypertension Qualified Code(s): I10 - Essential (primary) hypertension Plan to address problem: Suboptimal control. Patient is currently not on any blood pressure medications. Will start losartan for renal protection. Require additional antibiotics because blood pressure is not controlled. May require additional beta-ewa depending on cardiac findings. (4) IDDM (insulin dependent diabetes mellitus) Current Visit: Yes Status: Chronic Plan to address problem: Blood sugar currently uncontrolled A1c 9.6 will increase Lantus to 26 units nightly. Patient is also be started on a high-dose statin as well. (5) Tobacco abuse Current Visit: Yes Status: Chronic Plan to address problem: Tobacco abuse greater than [id number] history. Patient has tried many things to stop smoking. Will give Chantix versus nicotine patch upon discharge. Subjective Date of service: 09/05/20 Principal diagnosis: Chest pain Interval history: Patient is a 62-year-old male with a history of hypertension diabetes, BPH chest pain x1 month as he described as being substernal. Also describes pressure associated with shortness of breath symptoms were worse with exertion. Patient stated he will climb up a ladder and developed chest pain. Go for light jog he developed chest pain. Last for approximately 20 minutes each time. Patient admitted for work-up of acute coronary syndrome. At present remains stable. Blood pressure is uncontrolled. Objective - Constitutional Vitals: Vital Signs - 12hr 09/05/20 09/05/20 09/05/20 03:53 07:13 08:30 Temperature 98.4 F 98.0 F Pulse Rate 68 79 Respiratory 18 18 Rate Blood Pressure 157/72 142/87 165/93 O2 Sat by Pulse 98 98 Oximetry 09/05/20 09/05/20 09/05/20 09:02 09:03 09:04 Temperature Pulse Rate Respiratory Rate Blood Pressure 164/96 180/100 191/101 O2 Sat by Pulse Oximetry 09/05/20 09/05/20 09:05 11:11 Temperature 98.0 F Pulse Rate 69 Respiratory 20 Rate Blood Pressure 179/104 168/93 O2 Sat by Pulse 96 Oximetry General appearance: Present: no acute distress, well-nourished - EENT Eyes: PERRL, EOM intact ENT: hearing intact, clear oral mucosa Ears: bilateral: normal - Neck Neck: supple, normal ROM - Respiratory Respiratory effort: normal Respiratory: bilateral: CTA - Breasts Breasts: normal - Cardiovascular Rhythm: regular Heart Sounds: Present: S1 & S2. Absent: gallop, rub Extremities: pulses intact, No edema, normal color, Full ROM - Gastrointestinal General gastrointestinal: Present: soft, non-tender, non-distended, normal bowel sounds - Genitourinary Male genitourinary: normal - Integumentary Integumentary: clear, warm, dry - Musculoskeletal Musculoskeletal: 1, strength equal bilaterally - Neurologic Neurologic: moves all extremities - Psychiatric Psychiatric: memory intact, appropriate mood/affect, intact judgment & insight - Labs CBC & Chem 7: 09/05/20 04:24 09/05/20 04:24 Labs: Abnormal lab results 09/04/20 09/05/20 09/05/20 Range/Units 21:42 04:24 04:24 Hgb 15.4 H (11.8-15.2) gm/dl Lymph % (Auto) 37.3 H (13.4-35.0) % Sodium 135 L (137-145) mmol/L Glucose 237 H (75-100) mg/dL POC Glucose 249 H (70-105) mg/dL Hemoglobin A1c (4-6) % Total Protein 5.9 L (6.3-8.2) g/dL 09/05/20 09/05/20 09/05/20 Range/Units 04:24 07:11 11:07 Hgb (11.8-15.2) gm/dl Lymph % (Auto) (13.4-35.0) % Sodium (137-145) mmol/L Glucose (75-100) mg/dL POC Glucose 230 H 290 H (70-105) mg/dL Hemoglobin A1c 9.0 H (4-6) % Total Protein (6.3-8.2) g/dL HEART Score - HEART Score EKG: Non-specific Age: 45-65 Risk factors: > 3 risk factors or hx of atherosclerotic disease Troponin: Troponin T < 0.010 ng/mL (0.00-0.029) 09/05/20 10:32 Troponin: < normal limit - Critical Actions Critical Actions: 4-6 pts:12-16.6% risk of adverse cardiac event. Should be admitted
[2020-09-05] MEDS: INSULIN GLARGINE 100 UNITS/ML SUB-Q SCH (22:09)
[2020-09-05] MEDS: TAMSULOSIN 0.4 MG CAP PO SCH (22:11)
[2020-09-06 05:13] LABS: Basophils % (Auto) 0.5 % (0.0-1.8); Eosinophils # (Auto) 0.1 K/mm3 (0.0-0.4); Eosinophils % (Auto) 2.2 % (0.0-4.3); Hematocrit 43.3 % (35.5-45.6); Hemoglobin 15.1 gm/dl (11.8-15.2); Lymphocytes # (Auto) 2.2 K/mm3 (1.2-5.4); Lymphocytes % (Auto) 37.1 % (13.4-35.0); Mean Corpuscular HGB Conc 35 % (32-34); Mean Corpuscular Volume 92 fl (84-94); Monocytes # (Auto) 0.5 K/mm3 (0.0-0.8); Monocytes % (Auto) 7.7 % (0.0-7.3); Platelet Count 186 K/mm3 (140-440); Red Blood Count 4.69 M/mm3 (3.65-5.03); Red Cell Distribution Width 13.7 % (13.2-15.2)
[2020-09-06 05:21] LABS: INR 1.01 (0.87-1.13)
[2020-09-06 05:44] LABS: BUN/Creatinine Ratio 20; Blood Urea Nitrogen 18 mg/dL (9-20); Calcium 9.2 mg/dL (8.4-10.2); Hemolysis Index 15
[2020-09-06] MEDS: INSULIN LISPRO 100 UNIT/ML SUB-Q SCH ×4 (07:50→22:32)
--- NOTE | 2020-09-06 09:14 | Progress Note ---
Assessment and Plan Assessment and plan: Patient is a 62-year-old male with a history of hypertension diabetes, BPH chest pain x1 month as he described as being substernal. Also describes pressure associated with shortness of breath symptoms were worse with exertion. Patient stated he will climb up a ladder and developed chest pain. Go for light jog he developed chest pain. Last for approximately 20 minutes each time. Patient admitted for work-up of acute coronary syndrome. Acute coronary syndrome Unstable angina Hypertension Insulin-dependent diabetes mellitus Tobacco abuse 09/06/2020. Lexiscan revealed small area of mildly reduced uptake in the mid segment of the inferior wall. Cardiology to perform LHC today. History Interval history: No new issues overnight. Hospitalist Physical - Constitutional Vitals: Temp Pulse Resp BP Pulse Ox 97.9 F 69 20 131/70 99 09/06/20 05:56 09/06/20 05:56 09/06/20 05:56 09/06/20 05:56 09/06/20 05:56 General appearance: Present: no acute distress - EENT Eyes: Present: PERRL, EOM intact ENT: hearing intact, clear oral mucosa, dentition normal - Neck Neck: Present: supple, normal ROM - Respiratory Respiratory effort: normal Respiratory: bilateral: CTA - Cardiovascular Rhythm: regular Heart Sounds: Present: S1 & S2. Absent: gallop, rub - Extremities Extremities: no ischemia, No edema, Full ROM - Abdominal General gastrointestinal: soft, non-tender, non-distended, normal bowel sounds - Integumentary Integumentary: Present: clear, warm, dry - Neurologic Neurologic: CNII-XII intact, moves all extremities HEART Score - HEART Score EKG: Non-specific Age: 45-65 Risk factors: > 3 risk factors or hx of atherosclerotic disease Troponin: Troponin T < 0.010 ng/mL (0.00-0.029) 09/05/20 10:32 Troponin: < normal limit - Critical Actions Critical Actions: 4-6 pts:12-16.6% risk of adverse cardiac event. Should be admitted Results - Labs CBC & Chem 7: 09/06/20 04:12 09/06/20 04:12 Labs: Laboratory Last Values WBC 5.8 K/mm3 (4.5-11.0) 09/06/20 04:12 RBC 4.69 M/mm3 (3.65-5.03) 09/06/20 04:12 Hgb 15.1 gm/dl (11.8-15.2) 09/06/20 04:12 Hct 43.3 % (35.5-45.6) 09/06/20 04:12 MCV 92 fl (84-94) 09/06/20 04:12 MCH 32 pg (28-32) 09/06/20 04:12 MCHC 35 % (32-34) H 09/06/20 04:12 RDW 13.7 % (13.2-15.2) 09/06/20 04:12 Plt Count 186 K/mm3 (140-440) 09/06/20 04:12 Lymph % (Auto) 37.1 % (13.4-35.0) H 09/06/20 04:12 [place] % (Auto) 7.7 % (0.0-7.3) H 09/06/20 04:12 Eos % (Auto) 2.2 % (0.0-4.3) 09/06/20 04:12 Baso % (Auto) 0.5 % (0.0-1.8) 09/06/20 04:12 Lymph # (Auto) 2.2 K/mm3 (1.2-5.4) 09/06/20 04:12 [place] # (Auto) 0.5 K/mm3 (0.0-0.8) 09/06/20 04:12 Eos # (Auto) 0.1 K/mm3 (0.0-0.4) 09/06/20 04:12 Baso # (Auto) 0.0 K/mm3 (0.0-0.1) 09/06/20 04:12 Seg Neutrophils % 52.5 % (40.0-70.0) 09/06/20 04:12 Seg Neutrophils # 3.1 K/mm3 (1.8-7.7) 09/06/20 04:12 PT 13.8 Sec. (12.2-14.9) 09/06/20 04:12 INR 1.01 (0.87-1.13) 09/06/20 04:12 Sodium 136 mmol/L (137-145) L 09/06/20 04:12 Potassium 4.2 mmol/L (3.6-5.0) 09/06/20 04:12 Chloride 100.8 mmol/L (98-107) 09/06/20 04:12 Carbon Dioxide 27 mmol/L (22-30) 09/06/20 04:12 Anion Gap 12 mmol/L 09/06/20 04:12 BUN 18 mg/dL (9-20) 09/06/20 04:12 Creatinine 0.9 mg/dL (0.8-1.3) 09/06/20 04:12 Estimated GFR > 60 ml/min 09/06/20 04:12 BUN/Creatinine Ratio 20 % 09/06/20 04:12 Glucose 227 mg/dL (75-100) H 09/06/20 04:12 POC Glucose 219 mg/dL (70-105) H 09/06/20 07:51 Hemoglobin A1c 9.0 % (4-6) H 09/05/20 04:24 Calcium 9.2 mg/dL (8.4-10.2) 09/06/20 04:12 Total Bilirubin 0.20 mg/dL (0.1-1.2) 09/05/20 04:24 AST 17 units/L (5-40) 09/05/20 04:24 ALT 20 units/L (7-56) 09/05/20 04:24 Alkaline Phosphatase 59 units/L (35-129) 09/05/20 04:24 Troponin T < 0.010 ng/mL (0.00-0.029) 09/05/20 10:32 Total Protein 5.9 g/dL (6.3-8.2) L 09/05/20 04:24 Albumin 4.2 g/dL (3.9-5) 09/05/20 04:24 Albumin/Globulin Ratio 2.5 % 09/05/20 04:24 Agarwal/IV: Voiding Method Toilet Active Medications - Current Medications Current Medications: Generic Name Dose Route Start Last Admin Trade Name Freq PRN Reason Stop Dose Admin Acetaminophen 650 mg 09/04/20 21:11 Acetaminophen 325 Mg Tab PO Q4H PRN Pain MILD(1-3)/Fever >100.5/CHANEY Aspirin 81 mg 09/05/20 10:00 09/05/20 10:27 Aspirin 81 Mg Tab Chew PO 81 mg QDAY [facility] Administration Atorvastatin Calcium 40 mg 09/05/20 22:00 09/05/20 22:11 Atorvastatin 20 Mg Tab PO 40 mg QHS [facility] Administration Famotidine 20 mg 09/04/20 22:00 09/05/20 22:10 Famotidine 20 Mg/2 Ml Inj IV 20 mg BID [facility] Administration Heparin Sodium (Porcine) 5,000 unit 09/04/20 22:00 09/05/20 22:08 Heparin 5,000 Unit/1 Ml Vial SUB-Q Not Given Q12HR [facility] Insulin Glargine 28 units 09/05/20 12:22 09/05/20 22:09 Insulin Glargine 100 Units/Ml SUB-Q Not Given QHS [facility] Insulin Human Lispro 0 unit 09/04/20 22:00 09/06/20 07:50 Insulin Lispro 100 Unit/Ml SUB-Q Not Given [facility] Protocol Lisinopril 20 mg 09/05/20 10:00 09/05/20 10:28 Lisinopril 20 Mg Tab PO 20 mg QDAY [facility] Administration Metoprolol Tartrate 25 mg 09/05/20 10:00 09/05/20 22:11 Metoprolol Tartrate 25 Mg Tab PO 25 mg BID [facility] Administration Morphine Sulfate 2 mg 09/04/20 21:11 Morphine 2 Mg/1 Ml Inj IV Q4H PRN Pain, Moderate (4-6) Ondansetron HCl 4 mg 09/04/20 21:11 Ondansetron 4 Mg/2 Ml Inj IV Q8H PRN Nausea And Vomiting Oxycodone/Acetaminophen 1 tab 09/04/20 21:11 Oxycodone /Acetaminophen 5-325mg Tab PO Q6H PRN Pain, Moderate (4-6) Sodium Chloride 10 ml 09/04/20 22:00 09/05/20 22:12 Sodium Chloride 0.9% 10 Ml Flush Syringe IV 10 ml BID [facility] Administration Sodium Chloride 10 ml 09/04/20 21:11 Sodium Chloride 0.9% 10 Ml Flush Syringe IV PRN PRN LINE FLUSH Tamsulosin HCl 0.4 mg 09/04/20 22:00 09/05/20 22:11 Tamsulosin 0.4 Mg Cap PO 0.4 mg QDAY@2200 [facility] Administration
[2020-09-06] MEDS: HEPARIN 5,000 UNIT/1 ML VIAL SUB-Q SCH (10:00)
[2020-09-06] MEDS: ASPIRIN 81 MG TAB CHEW PO SCH (10:30)
[2020-09-06] MEDS: SODIUM CHLORIDE 0.9% 500 ML 500 ML IV SCH ×2 (10:46→11:25)
--- NOTE | 2020-09-06 11:04 | Progress Note ---
Assessment and Plan Coronary Artery Disease with Unstable Angina * Echo pending. * LHC (09/06/2020): Severe mid circumflex artery stenosis. Global nonobstructive mild coronary artery disease. Elevated end-diastolic pressure but normal left ventricular systolic function. Patient is scheduled for repeat LHC with planned angioplasty of the mid circumflex in a.m. * LHC in am. NPO after midnight. * Initiate heparin drip per standard intensity titration. Heparin drip should be discontinued in a.m. approximately 5 AM, 4 hours prior to planned LHC. * Continue beta-ewa and GERARDO inhibitor. Pt seen in conjunction with Dr. Sterling, who agrees with the assessment and plan of care. - Patient Problems (1) Unstable angina Current Visit: Yes Status: Acute (2) Abnormal ECG Current Visit: Yes Status: Acute (3) Hypertension Current Visit: Yes Status: Chronic Qualifiers: Hypertension type: primary hypertension Qualified Code(s): I10 - Essential (primary) hypertension (4) IDDM (insulin dependent diabetes mellitus) Current Visit: Yes Status: Chronic (5) Tobacco abuse Current Visit: Yes Status: Chronic (6) Coronary Artery Disease Current Visit: Yes Status: Chronic Subjective Date of service: 09/06/20 Principal diagnosis: Chest pain Interval history: Patient is currently resting in bed. No shortness of breath or chest pain overnight Telemetry reviewed: Sinus rhythm 64. No events Objective Last Vital Signs Temp 97.9 F 09/06/20 07:51 Pulse 60 09/06/20 07:51 Resp 18 09/06/20 07:51 BP 139/84 09/06/20 07:51 Pulse Ox 97 09/06/20 07:51 - Physical Examination General: No Apparent Distress HEENT: Positive: EOMI, Normocephaly, Mucus Membranes Moist Neck: Positive: neck supple, trachea midline. Negative: JVD/HJR Cardiac: Positive: Reg Rate and Rhythm, S1/S2 Lungs: Positive: clear to auscultation, Normal Breath Sounds Neuro: Positive: Grossly Intact Abdomen: Positive: Soft. Negative: Tender Skin: Negative: Rash Musculoskeletal: No Pain Extremities: Present: upper extr. pulses, lower extr. pulses. Absent: edema - Labs and Meds Coagulation 09/06/20 Range/Units 04:12 PT 13.8 (12.2-14.9) Sec. INR 1.01 (0.87-1.13) CBC 09/06/20 Range/Units 04:12 WBC 5.8 (4.5-11.0) K/mm3 RBC 4.69 (3.65-5.03) M/mm3 Hgb 15.1 (11.8-15.2) gm/dl Hct 43.3 (35.5-45.6) % Plt Count 186 (140-440) K/mm3 Lymph # (Auto) 2.2 (1.2-5.4) K/mm3 [place] # (Auto) 0.5 (0.0-0.8) K/mm3 Eos # (Auto) 0.1 (0.0-0.4) K/mm3 Baso # (Auto) 0.0 (0.0-0.1) K/mm3 Comprehensive Metabolic Panel 09/06/20 Range/Units 04:12 Sodium 136 L (137-145) mmol/L Potassium 4.2 (3.6-5.0) mmol/L Chloride 100.8 (98-107) mmol/L Carbon Dioxide 27 (22-30) mmol/L BUN 18 (9-20) mg/dL Creatinine 0.9 (0.8-1.3) mg/dL Glucose 227 H (75-100) mg/dL Calcium 9.2 (8.4-10.2) mg/dL - Imaging and Cardiology EKG: report reviewed, image reviewed Echo: pending Cardiac cath: pending, report reviewed ([facility] (09/06/2020): Severe mid circumflex artery stenosis. Global nonobstructive mild coronary artery disease. Elevated end-diastolic pressure but normal left ventricular systolic function. Patient is scheduled for repeat [facility] with angioplasty of the mid circumflex in a.m.) - Telemetry EKG Rhythm: Sinus Rhythm - EKG Sinus rhythms and dysrhythmias: sinus rhythm Chamber hypertrophy or enlargement: left ventricular hypertro
[2020-09-06] MEDS ORDERED: HEPARIN/NS 5000 UNIT/500ML 1,000 ML IR ONE (11:05)
[2020-09-06] MEDS ORDERED: VERAPAMIL 5 MG/2 ML INJ ONE (11:06)
[2020-09-06] MEDS ORDERED: LIDOCAINE (2%) 20 MG/1 ML VIAL 20 ML MDV INFILTRATI ONE (11:06)
[2020-09-06] MEDS ORDERED: NITROGLYCERIN SYRINGE 0 ML ONE (11:07)
[2020-09-06] MEDS: fentaNYL 100 MCG/2 ML INJ ONE ×2 (11:25→11:30)
[2020-09-06] MEDS: MIDAZOLAM 2 MG/2 ML INJ ONE ×2 (11:25→11:30)
--- NOTE | 2020-09-06 11:29 | Discharge Summary ---
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 Also describes pressure associated with shortness of breath symptoms were worse with exertion. Patient stated he will climb up a ladder and developed chest pain. Go for light jog he developed chest pain. Last for approximately 20 minutes each time. Patient admitted for work-up of acute coronary syndrome, unstable angina, hypertension, insulin-dependent diabetes mellitus and tobacco abuse. Trop neg x 3. ECG reveals SR w/LVH and deep T wave inversions in anterior and lateral leads. CXR reveals no acute findings. Patient underwent Lexiscan which revealed small area of mildly reduced uptake in the mid segment of the inferior wall. Cardiology opted to perform LHC today. If LHC is negative, patient will likely discharge home with follow-up with PCP and cardiology as an outpatient. Diagnosis likely GERD if LHC negative. Disposition: DC-01 TO HOME OR SELFCARE Final Discharge Diagnosis (Prints w/discharge instructions): Acute coronary syndrome, HTN, poorly controlled DM, and tobacco abuse (1 PPD), hypertension Core Measure Documentation - Palliative Care Palliative Care/ Comfort Measures: Not Applicable - Core Measures Any of the following diagnoses?: none Exam - Constitutional Vitals: Temp Pulse Resp BP Pulse Ox 97.9 F 60 18 139/84 97 09/06/20 07:51 09/06/20 07:51 09/06/20 07:51 09/06/20 07:51 09/06/20 07:51 General appearance: Present: no acute distress, well-nourished - EENT Eyes: Present: PERRL ENT: hearing intact, clear oral mucosa - Neck Neck: Present: supple, normal ROM - Respiratory Respiratory effort: normal Respiratory: bilateral: CTA - Cardiovascular Heart Sounds: Present: S1 & S2. Absent: rub, click - Extremities Extremities: pulses symmetrical, No edema Peripheral Pulses: within normal limits - Abdominal General gastrointestinal: Present: soft, non-tender, non-distended, normal bowel sounds Male genitourinary: Present: normal - Integumentary Integumentary: Present: clear, warm, dry - Musculoskeletal Musculoskeletal: gait normal, strength equal bilaterally - Psychiatric Psychiatric: appropriate mood/affect, intact judgment & insight - Neurologic Neurologic: CNII-XII intact, moves all extremities Plan Activity: advance as tolerated Weight Bearing Status: Weight Bear as Tolerated Diet: low fat, low cholesterol, low salt Follow up with: PRIMARY CARE, [Primary Care Provider] - 3-5 Days Prescriptions: Aspirin [Aspirin BABY CHEW TAB] 81 mg PO QDAY #30 tab.chew Insulin Glargine [Lantus VIAL] 28 units SUB-Q QHS 30 Days units AtorvaSTATin [Lipitor] 40 mg PO QHS #30 tablet Metoprolol [Lopressor TAB] 25 mg PO BID #60 tablet lisinopriL [Zestril TAB] 20 mg PO QDAY #30 tablet
[2020-09-06] MEDS: HEPARIN 10,000 UNITS/10 ML VIAL ONE (11:32)
[2020-09-06] MEDS ORDERED: HEPARIN/ 0.45% NACL DRIP 25,000 UNIT/500 ML BAG ONE (11:53)
--- NOTE | 2020-09-06 12:35 | Cardiac Catherization Report ---
DATE OF SERVICE: 09/06/2020 INDICATIONS: The patient is a 64-year-old -[place] gentleman with history of hypertension, uncontrolled diabetes mellitus, who was admitted with chest pain and was noted to have mildly abnormal stress nuclear imaging. Hence, scheduled for cardiac catheterization. The patient is also a chronic smoker. Because of his multiple coronary risk factors and abnormal nuclear stress testing with symptoms, he is scheduled for cardiac catheterization for definitive diagnosis and treatment. The patient is aware of the procedure, potential complications and the alternatives of therapy available. DESCRIPTION OF PROCEDURE: The patient was brought to the catheterization laboratory in a fasting condition. The patient was evaluated for moderate sedation and was felt to be an appropriate candidate for moderate sedation. Received IV Versed and fentanyl starting at 11:25 a.m. Subsequently, right radial local anesthesia was given in the right wrist area and right radial artery access was obtained using 21-gauge arterial puncture needle. A 5-British sheath was introduced. The patient received 5 mg of intra-arterial verapamil and 3000 units of intravenous heparin. Subsequently, a 5-British multipurpose catheter was used to obtain the angiograms of the left coronary artery in multiple views followed by angiograms of the right coronary artery and left ventriculogram done in [place]LEY projection using hand injection. After completing the procedure, it was felt the patient would benefit from intervention of the circumflex artery, which will be scheduled electively for tomorrow. The patient's sedation started at 11:25 a.m. and ended at 11:40 a.m. The patient tolerated the IV sedation well. At the end of the procedure, the patient was breathing normally, communicating normally with no focal deficits. Following findings were noted. HEMODYNAMICS: 1. Opening aortic pressure, aortic pressure 157/87. Left ventricular pressure 157/38. No gradient across the aortic valve. Estimated ejection fraction 50-55%. 2. Left ventriculogram done in [place] projection showed normal sized left ventricle with normal contractility. End-diastolic and end-systolic volumes are normal. Significantly elevated end diastolic pressure of 38 mm noted. Right coronary artery dominant vessel shows very mild irregularities. 3. Left coronary artery arises normally from left coronary cusp. Left main is very long, dividing into LAD and circumflex arteries. The LAD and its branches show minimal irregularities. Otherwise, circumflex artery shows a focal mid lesion approaching 99% at a bend. Rest of the vessel shows no significant disease. 4. Collaterals: None. FINAL IMPRESSION: Severe mid circumflex artery stenosis with the rest of the coronaries showing mild disease and elevated end-diastolic pressure, but normal left ventricular systolic function, considering the above angiographic pictures, it was felt the patient would benefit from intervention of the circumflex artery. However, considering the location of the lesion and coronary anatomy, it was decided to bring him back next day for further intervention. The same was explained to the patient. He is agreeable with plan. TID: [id number] RECEIPT: [id number] JONI/MARLA MADSEN
[2020-09-06] MEDS ORDERED: HEPARIN/ 0.45% NACL DRIP 25,000 UNIT/500 ML BAG IV SCH (13:00)
[2020-09-06] MEDS ORDERED: HEPARIN 10,000 UNITS/10 ML VIAL IV PRN ×2 (13:00→14:00)
[2020-09-06] MEDS ORDERED: ASPIRIN EC 325 MG TAB PO ONE (13:13)
[2020-09-06] MEDS ORDERED: HEPARIN 10,000 UNITS/10 ML VIAL IV ONE (13:17)
[2020-09-06] MEDS: LISINOPRIL 20 MG TAB PO SCH (13:45)
[2020-09-06] MEDS: METOPROLOL TARTRATE 25 MG TAB PO SCH ×2 (13:45→22:30)
[2020-09-06] MEDS: FAMOTIDINE 20 MG/2 ML INJ IV SCH ×2 (13:45→22:33)
[2020-09-06] MEDS ORDERED: SODIUM CHLORIDE 0.9% 500 ML 500 ML IV SCH (14:00)
[2020-09-06 20:24] LABS: Partial Thromboplastin Time 48.5 Sec. (24.2-36.6)
[2020-09-06 20:25] LABS: INR 1.01 (0.87-1.13)
[2020-09-06] MEDS ORDERED: hydrALAZINE 20 MG/1 ML INJ IV ONE (21:56)
[2020-09-06] MEDS: TAMSULOSIN 0.4 MG CAP PO SCH (22:30)
[2020-09-06] MEDS: INSULIN GLARGINE 100 UNITS/ML SUB-Q SCH (22:44)
[2020-09-07 04:28] LABS: Basophils % (Auto) 0.4 % (0.0-1.8); Eosinophils # (Auto) 0.2 K/mm3 (0.0-0.4); Eosinophils % (Auto) 2.4 % (0.0-4.3); Hematocrit 44.3 % (35.5-45.6); Hemoglobin 15.4 gm/dl (11.8-15.2); Lymphocytes # (Auto) 2.3 K/mm3 (1.2-5.4); Lymphocytes % (Auto) 35.6 % (13.4-35.0); Mean Corpuscular HGB Conc 35 % (32-34); Mean Corpuscular Volume 92 fl (84-94); Monocytes # (Auto) 0.5 K/mm3 (0.0-0.8); Monocytes % (Auto) 7.7 % (0.0-7.3); Platelet Count 193 K/mm3 (140-440); Red Blood Count 4.84 M/mm3 (3.65-5.03); Red Cell Distribution Width 13.6 % (13.2-15.2)
[2020-09-07 04:36] LABS: INR 0.93 (0.87-1.13)
[2020-09-07 04:38] LABS: BUN/Creatinine Ratio 18; Blood Urea Nitrogen 14 mg/dL (9-20); Calcium 8.6 mg/dL (8.4-10.2); Hemolysis Index 13
[2020-09-07] MEDS ORDERED: SODIUM CHLORIDE 0.9% 500 ML 500 ML ONE (07:17)
[2020-09-07] MEDS ORDERED: ASPIRIN EC 325 MG TAB PO SCH (07:30)
[2020-09-07] MEDS ORDERED: SODIUM CHLORIDE 0.9% 500 ML 500 ML IV SCH (08:00)
[2020-09-07] MEDS ORDERED: HEPARIN/NS 5000 UNIT/500ML 1,000 ML IR ONE (08:01)
[2020-09-07] MEDS ORDERED: MIDAZOLAM 2 MG/2 ML INJ ONE (08:01)
[2020-09-07] MEDS ORDERED: NITROGLYCERIN SYRINGE 0 ML ONE (08:02)
[2020-09-07] MEDS: HEPARIN 10,000 UNITS/10 ML VIAL ONE ×3 (08:30→09:04)
[2020-09-07] MEDS: MIDAZOLAM 2 MG/2 ML INJ ONE ×3 (08:30→08:54)
[2020-09-07] MEDS: fentaNYL 100 MCG/2 ML INJ ONE ×3 (08:30→08:54)
[2020-09-07] MEDS: LIDOCAINE (2%) 20 MG/1 ML VIAL 20 ML MDV INFILTRATI ONE ×3 (08:30→08:53)
[2020-09-07] MEDS: VERAPAMIL 5 MG/2 ML INJ ONE ×2 (08:31→08:54)
[2020-09-07] MEDS ORDERED: HEPARIN/NS 5000 UNIT/500ML 500 ML IR ONE (08:33)
--- NOTE | 2020-09-07 08:37 | Progress Note ---
Assessment and Plan Assessment and plan: Patient is a 62-year-old male with a history of hypertension diabetes, BPH chest pain x1 month as he described as being substernal. Also describes pressure associated with shortness of breath symptoms were worse with exertion. Patient stated he will climb up a ladder and developed chest pain. Go for light jog he developed chest pain. Last for approximately 20 minutes each time. Patient admitted for work-up of acute coronary syndrome. Acute coronary syndrome Unstable angina Hypertension Insulin-dependent diabetes mellitus Tobacco abuse 09/06/2020. Lexiscan revealed small area of mildly reduced uptake in the mid segment of the inferior wall. Cardiology performed LHC which revealed Severe mid circumflex artery stenosis. Global nonobstructive mild coronary artery disease. Elevated end-diastolic pressure but normal left ventricular systolic function. Patient is scheduled for repeat LHC with planned angioplasty of the mid circumflex in a.m. History Interval history: No new issues overnight. Hospitalist Physical - Constitutional Vitals: Temp Pulse Resp BP Pulse Ox 98.0 F 68 18 149/78 97 09/07/20 04:04 09/07/20 04:38 09/07/20 04:04 09/07/20 04:04 09/07/20 00:01 General appearance: Present: no acute distress, well-nourished - EENT Eyes: Present: PERRL, EOM intact ENT: hearing intact, clear oral mucosa, dentition normal - Neck Neck: Present: supple, normal ROM - Respiratory Respiratory effort: normal Respiratory: bilateral: CTA - Cardiovascular Rhythm: regular Heart Sounds: Present: S1 & S2. Absent: gallop, rub - Extremities Extremities: no ischemia, No edema, Full ROM - Abdominal General gastrointestinal: soft, non-tender, non-distended, normal bowel sounds - Integumentary Integumentary: Present: clear, warm, dry - Neurologic Neurologic: CNII-XII intact, moves all extremities HEART Score - HEART Score EKG: Non-specific Age: 45-65 Risk factors: > 3 risk factors or hx of atherosclerotic disease Troponin: Troponin T < 0.010 ng/mL (0.00-0.029) 09/05/20 10:32 Troponin: < normal limit - Critical Actions Critical Actions: 4-6 pts:12-16.6% risk of adverse cardiac event. Should be admitted Results - Labs CBC & Chem 7: 09/07/20 04:11 09/07/20 04:11 Labs: Laboratory Last Values WBC 6.4 K/mm3 (4.5-11.0) 09/07/20 04:11 RBC 4.84 M/mm3 (3.65-5.03) 09/07/20 04:11 Hgb 15.4 gm/dl (11.8-15.2) H 09/07/20 04:11 Hct 44.3 % (35.5-45.6) 09/07/20 04:11 MCV 92 fl (84-94) 09/07/20 04:11 MCH 32 pg (28-32) 09/07/20 04:11 MCHC 35 % (32-34) H 09/07/20 04:11 RDW 13.6 % (13.2-15.2) 09/07/20 04:11 Plt Count 193 K/mm3 (140-440) 09/07/20 04:11 Lymph % (Auto) 35.6 % (13.4-35.0) H 09/07/20 04:11 [place] % (Auto) 7.7 % (0.0-7.3) H 09/07/20 04:11 Eos % (Auto) 2.4 % (0.0-4.3) 09/07/20 04:11 Baso % (Auto) 0.4 % (0.0-1.8) 09/07/20 04:11 Lymph # (Auto) 2.3 K/mm3 (1.2-5.4) 09/07/20 04:11 [place] # (Auto) 0.5 K/mm3 (0.0-0.8) 09/07/20 04:11 Eos # (Auto) 0.2 K/mm3 (0.0-0.4) 09/07/20 04:11 Baso # (Auto) 0.0 K/mm3 (0.0-0.1) 09/07/20 04:11 Seg Neutrophils % 53.9 % (40.0-70.0) 09/07/20 04:11 Seg Neutrophils # 3.4 K/mm3 (1.8-7.7) 09/07/20 04:11 PT 13.0 Sec. (12.2-14.9) 09/07/20 04:11 INR 0.93 (0.87-1.13) 09/07/20 04:11 APTT 48.5 Sec. (24.2-36.6) H 09/06/20 19:41 Heparin Anti-Xa Level 0.15 U.I./ml (0.3-0.7) L 09/07/20 04:11 Sodium 137 mmol/L (137-145) 09/07/20 04:11 Potassium 4.1 mmol/L (3.6-5.0) 09/07/20 04:11 Chloride 101.9 mmol/L (98-107) 09/07/20 04:11 Carbon Dioxide 25 mmol/L (22-30) 09/07/20 04:11 Anion Gap 14 mmol/L 09/07/20 04:11 BUN 14 mg/dL (9-20) 09/07/20 04:11 Creatinine 0.8 mg/dL (0.8-1.3) 09/07/20 04:11 Estimated GFR > 60 ml/min 09/07/20 04:11 BUN/Creatinine Ratio 18 % 09/07/20 04:11 Glucose 151 mg/dL (75-100) H 09/07/20 04:11 POC Glucose 138 mg/dL (70-105) H 09/07/20 05:45 Hemoglobin A1c 9.0 % (4-6) H 09/05/20 04:24 Calcium 8.6 mg/dL (8.4-10.2) 09/07/20 04:11 Total Bilirubin 0.20 mg/dL (0.1-1.2) 09/05/20 04:24 AST 17 units/L (5-40) 09/05/20 04:24 ALT 20 units/L (7-56) 09/05/20 04:24 Alkaline Phosphatase 59 units/L (35-129) 09/05/20 04:24 Troponin T < 0.010 ng/mL (0.00-0.029) 09/05/20 10:32 Total Protein 5.9 g/dL (6.3-8.2) L 09/05/20 04:24 Albumin 4.2 g/dL (3.9-5) 09/05/20 04:24 Albumin/Globulin Ratio 2.5 % 09/05/20 04:24 Agarwal/IV: Voiding Method Urinal Active Medications - Current Medications Current Medications: Generic Name Dose Route Start Last Admin Trade Name Freq PRN Reason Stop Dose Admin Acetaminophen 650 mg 09/04/20 21:11 Acetaminophen 325 Mg Tab PO Q4H PRN Pain MILD(1-3)/Fever >100.5/CHANEY Aspirin 325 mg 09/07/20 07:30 09/07/20 07:15 Aspirin Ec 325 Mg Tab PO 09/07/20 10:30 325 mg ONCE LIZ Administration Atorvastatin Calcium 40 mg 09/05/20 22:00 09/06/20 22:30 Atorvastatin 20 Mg Tab PO 40 mg QHS ILZ Administration Famotidine 20 mg 09/04/20 22:00 09/06/20 22:33 Famotidine 20 Mg/2 Ml Inj IV 20 mg BID LIZ Administration Heparin Sodium (Porcine) 3,900 unit 09/06/20 14:00 Heparin 10,000 Units/10 Ml Vial 40 unit/kg (3900 unit) IV Q6H PRN Anti-Xa Assay < 0.1 units/ml Sodium Chloride 500 mls @ 50 mls/hr 09/07/20 08:00 Nacl 0.9% 500 Ml IV 09/07/20 15:00 DIRECT LIZ Insulin Glargine 28 units 09/05/20 12:22 09/06/20 22:44 Insulin Glargine 100 Units/Ml SUB-Q 28 units QHS LIZ Administration Insulin Human Lispro 0 unit 09/04/20 22:00 09/06/20 22:32 Insulin Lispro 100 Unit/Ml SUB-Q 3 unit ACHS LIZ Administration Protocol Lisinopril 20 mg 09/05/20 10:00 09/06/20 13:45 Lisinopril 20 Mg Tab PO 20 mg QDAY LIZ Administration Metoprolol Tartrate 25 mg 09/05/20 10:00 09/06/20 22:30 Metoprolol Tartrate 25 Mg Tab PO 25 mg BID LIZ Administration Morphine Sulfate 2 mg 09/04/20 21:11 Morphine 2 Mg/1 Ml Inj IV Q4H PRN Pain, Moderate (4-6) Ondansetron HCl 4 mg 09/04/20 21:11 Ondansetron 4 Mg/2 Ml Inj IV Q8H PRN Nausea And Vomiting Oxycodone/Acetaminophen 1 tab 09/04/20 21:11 Oxycodone /Acetaminophen 5-325mg Tab PO Q6H PRN Pain, Moderate (4-6) Sodium Chloride 10 ml 09/04/20 22:00 09/06/20 22:36 Sodium Chloride 0.9% 10 Ml Flush Syringe IV 10 ml BID LIZ Administration Sodium Chloride 10 ml 09/04/20 21:11 Sodium Chloride 0.9% 10 Ml Flush Syringe IV PRN PRN LINE FLUSH Tamsulosin HCl 0.4 mg 09/04/20 22:00 09/06/20 22:30 Tamsulosin 0.4 Mg Cap PO 0.4 mg QDAY@2200 LIZ Administration
[2020-09-07] MEDS: METOPROLOL TARTRATE 25 MG TAB PO SCH (10:00)
[2020-09-07] MEDS: LISINOPRIL 20 MG TAB PO SCH (10:00)
--- NOTE | 2020-09-07 11:04 | Progress Note ---
Assessment and Plan Coronary Artery Disease with Unstable Angina * Echo pending read. * Continue beta-ewa and GERARDO inhibitor. * [facility] (09/06/2020): Severe mid circumflex artery stenosis. Global nonobstructive mild coronary artery disease. Elevated end-diastolic pressure but normal left ventricular systolic function. * Will resume heparin gtt at standard intensity protocol prior to transfer. Patient will be transferred to [facility] for staged PCI. Accepting surgeon Dr Gurinder Guzman Pt seen in conjunction with Dr. Sterling, who agrees with the assessment and plan of care. - Patient Problems (1) Unstable angina Current Visit: Yes Status: Acute (2) Abnormal ECG Current Visit: Yes Status: Acute (3) Hypertension Current Visit: Yes Status: Chronic Qualifiers: Hypertension type: primary hypertension Qualified Code(s): I10 - Essential (primary) hypertension (4) IDDM (insulin dependent diabetes mellitus) Current Visit: Yes Status: Chronic (5) Tobacco abuse Current Visit: Yes Status: Chronic (6) Coronary Artery Disease Current Visit: Yes Status: Chronic Subjective Date of service: 09/07/20 Principal diagnosis: Chest pain Interval history: Patient is currently resting in bed. No shortness of breath or chest pain overnight Telemetry reviewed: Sinus rhythm 67. No Events Objective Last Vital Signs Temp 98.9 F 09/07/20 10:00 Pulse 54 L 09/07/20 10:11 Resp 18 09/07/20 10:11 BP 138/75 09/07/20 10:11 Pulse Ox 98 09/07/20 10:11 - Physical Examination General: No Apparent Distress HEENT: Positive: EOMI, Normocephaly, Mucus Membranes Moist Neck: Positive: neck supple, trachea midline. Negative: JVD/HJR Cardiac: Positive: Reg Rate and Rhythm, S1/S2 Lungs: Positive: Normal Exam, Normal Breath Sounds Neuro: Positive: Grossly Intact Abdomen: Positive: Soft. Negative: Tender Skin: Negative: Rash Musculoskeletal: No Pain Extremities: Present: upper extr. pulses, lower extr. pulses. Absent: edema - Labs and Meds Coagulation 09/06/20 09/07/20 Range/Units 19:41 04:11 PT 13.8 13.0 (12.2-14.9) Sec. INR 1.01 0.93 (0.87-1.13) APTT 48.5 H (24.2-36.6) Sec. CBC 09/07/20 Range/Units 04:11 WBC 6.4 (4.5-11.0) K/mm3 RBC 4.84 (3.65-5.03) M/mm3 Hgb 15.4 H (11.8-15.2) gm/dl Hct 44.3 (35.5-45.6) % Plt Count 193 (140-440) K/mm3 Lymph # (Auto) 2.3 (1.2-5.4) K/mm3 [place] # (Auto) 0.5 (0.0-0.8) K/mm3 Eos # (Auto) 0.2 (0.0-0.4) K/mm3 Baso # (Auto) 0.0 (0.0-0.1) K/mm3 Comprehensive Metabolic Panel 09/07/20 Range/Units 04:11 Sodium 137 (137-145) mmol/L Potassium 4.1 (3.6-5.0) mmol/L Chloride 101.9 (98-107) mmol/L Carbon Dioxide 25 (22-30) mmol/L BUN 14 (9-20) mg/dL Creatinine 0.8 (0.8-1.3) mg/dL Glucose 151 H (75-100) mg/dL Calcium 8.6 (8.4-10.2) mg/dL - Imaging and Cardiology EKG: report reviewed, image reviewed Echo: pending Cardiac cath: report reviewed ([facility] (09/06/2020): Severe mid circumflex artery stenosis. Global nonobstructive mild coronary artery disease. Elevated end- diastolic pressure but normal left ventricular systolic function. Patient is scheduled for repeat [facility] with angioplasty of the mid circumflex in a.m.) - Telemetry EKG Rhythm: Sinus Rhythm - EKG Sinus rhythms and dysrhythmias: sinus rhythm Chamber hypertrophy or enlargement: left ventricular hypertro
--- NOTE | 2020-09-07 11:45 | Discharge Summary ---
Providers - Providers Date of Admission: 09/06/20 09:47 Date of discharge: 09/07/20 Attending physician: DON LYNNE 09/04/20 11:23 Consult to Cardiology [CONS] Routine Consulting Provider: FREDO MULLINS Reason For Exam: Chest pain, Abnormal EKG Primary care physician: [employer] HAMMER STRIPPER Hospitalization Reason for admission: CP Condition: Fair Hospital course: Patient is a 62-year-old male with a history of hypertension diabetes, BPH chest pain x1 month as he described as being substernal. Also describes pressure associated with shortness of breath symptoms were worse with exertion. Patient stated he will climb up a ladder and developed chest pain. Go for light jog he developed chest pain. Last for approximately 20 minutes each time. Patient admitted for work-up of acute coronary syndrome, unstable angina, hypertension, insulin-dependent diabetes mellitus and tobacco abuse. Trop neg x 3. ECG reveals SR w/LVH and deep T wave inversions in anterior and lateral leads. CXR reveals no acute findings. Patient underwent Lexiscan which revealed small area of mildly reduced uptake in the mid segment of the inferior wall. Cardiology opted to perform LHC. Patient had LHC which revealed severe mid circumflex artery stenosis. Global nonobstructive mild coronary artery disease. Elevated end-diastolic pressure but normal left ventricular systolic function. After 2 LHC procedures Cards wants the pt. transferred to [facility] system for staged PCI. Disposition: DC-01 TO HOME OR SELFCARE Final Discharge Diagnosis (Prints w/discharge instructions): Coronary Artery Disease with Unstable Angina Core Measure Documentation - Palliative Care Palliative Care/ Comfort Measures: Not Applicable - Core Measures Any of the following diagnoses?: none Exam - Constitutional Vitals: Temp Pulse Resp BP Pulse Ox 97.9 F 58 L 20 139/80 100 09/07/20 11:21 09/07/20 11:13 09/07/20 11:21 09/07/20 11:13 09/07/20 11:13 General appearance: Present: no acute distress, well-nourished - EENT Eyes: Present: PERRL ENT: hearing intact, clear oral mucosa - Neck Neck: Present: supple, normal ROM - Respiratory Respiratory effort: normal Respiratory: bilateral: CTA - Cardiovascular Heart Sounds: Present: S1 & S2. Absent: rub, click - Extremities Extremities: pulses symmetrical, No edema Peripheral Pulses: within normal limits - Abdominal General gastrointestinal: Present: soft, non-tender, non-distended, normal bowel sounds Male genitourinary: Present: normal - Integumentary Integumentary: Present: clear, warm, dry - Musculoskeletal Musculoskeletal: gait normal, strength equal bilaterally - Psychiatric Psychiatric: appropriate mood/affect, intact judgment & insight - Neurologic Neurologic: CNII-XII intact, moves all extremities Plan Activity: advance as tolerated Weight Bearing Status: Weight Bear as Tolerated Diet: low fat, low cholesterol, low salt Follow up with: PRIMARY CARE,MD [Primary Care Provider] - 3-5 Days Prescriptions: Aspirin [Aspirin BABY CHEW TAB] 81 mg PO QDAY #30 tab.chew Insulin Glargine [Lantus VIAL] 28 units SUB-Q QHS 30 Days units AtorvaSTATin [Lipitor] 40 mg PO QHS #30 tablet Metoprolol [Lopressor TAB] 25 mg PO BID #60 tablet lisinopriL [Zestril TAB] 20 mg PO QDAY #30 tablet
[2020-09-07] MEDS: INSULIN LISPRO 100 UNIT/ML SUB-Q SCH ×2 (12:00→16:11)
[2020-09-07] MEDS: FAMOTIDINE 20 MG/2 ML INJ IV SCH (12:16)
--- NOTE | 2020-09-07 12:24 | Cardiac Catherization Report ---
DATE OF SERVICE: 09/07/2020 INDICATIONS: The patient is a 64-year-old gentleman with history of hypertension, diabetes mellitus, chronic smoking with exertional chest pain and abnormal nuclear imaging was noted to have very tight mid circumflex lesion, it was scheduled electively for intervention of the mid circumflex lesion. DESCRIPTION OF PROCEDURE: The patient was prepared in the usual fashion after obtaining the informed consent. The patient was sedated with IV Versed and fentanyl. Subsequently, local anesthesia was given in the right wrist area and right radial artery was accessed with a 21-gauge arterial puncture needle. A 5-Cymro slender sheath was introduced. ACT was obtained, which was found to be around 170 seconds and received 4000 units of intravenous heparin. Diagnostic angiogram showed severe stenosis in the mid RCA close to 99%. Attempt was made to advance initially [place] XT 0.014 inch into the circumflex artery. Because of the angulation of the left main and circumflex artery, it was difficult to advance the wire completely into the circumflex artery. The wire was buckling up consistently into the LAD. Also, Customer Success Representative 50 wire was used with similar results. Considering the difficulty with wiring, it was felt inserting the stent will be an issue. Because of this, procedure was aborted. Final angiograms were obtained, which showed no evidence of any complications. Guidewire and guiding catheter were removed. Plan at this time is to repeat the procedure at [facility] where more resources are available. Discussed with , who will accept the transfer and attempt the procedure. Same was explained to the patient in detail. He understands the issues with performing the procedure. He is agreeable with the plan. FINAL IMPRESSION: Attempted intervention of the mid circumflex lesion with difficulty wiring the circumflex artery. No complications noted. The patient was stable throughout the procedure. The patient was sedated and monitored from 8:47 a.m. to 9:22 a.m. At the end of the procedure, the patient is breathing normally, communicating normally without any problems. No focal deficits noted. The patient was transferred to the room in stable condition. Radial sheath was removed and radial band will be applied. TID: [id number] RECEIPT: [id number] JONI/YOVANNY/BRUCE MTDD
[2020-09-07] MEDS ORDERED: HEPARIN/ 0.45% NACL DRIP 25,000 UNIT/500 ML BAG IV SCH (13:00)
[2020-09-07] MEDS ORDERED: HEPARIN 10,000 UNITS/10 ML VIAL IV PRN (13:00)
[2020-09-07 13:53] LABS: Hematocrit 48.5 % (35.5-45.6); Hemoglobin 16.3 gm/dl (11.8-15.2)
[2020-09-07 14:31] LABS: INR 0.95 (0.87-1.13)
[2020-09-07 14:32] LABS: Partial Thromboplastin Time 31.8 Sec. (24.2-36.6)
[2020-09-07 15:55] VITALS: BP 151/82
--- NOTE | 2020-09-07 17:46 | Electrocardiograph Report ---
[facility] Test Date: 2020-09-05 Test Time: 12:26:36 Pat Name: RAFIQ ENRIQUEZ Department: Room: A451 1 Gender: M Desktop Analyst: TYESHA : 1955 Requested By: FLY LYNNE Order Number: [id number] Reading MD: Isacc Hernandez Measurements Intervals [place] Rate: 60 P: 63 [place]: 169 QRS: 49 QRSD: 72 T: 180 QT: 459 QTc: 458 Interpretive Statements Sinus rhythm Deep T wave inversions suggest acute lateral ischemia Compared to ECG 09/04/2020 10:12:20 No significant change Electronically Signed On 09-07-2020 17:46:45 EDT by Isacc Hernandez
--- NOTE | 2020-09-07 17:59 | Electrocardiograph Report ---
[facility] Test Date: 2020-09-06 Test Time: 13:57:50 Pat Name: RAFIQ ENRIQUEZ Department: Room: A451 1 Gender: M Practice Nurse: BOGDAN : 1955 Requested By: RACHAEL GARZA Order Number: [id number] Reading MD: Isacc Hernandez Measurements Intervals [place] Rate: 52 P: 66 [place]: 159 QRS: 45 QRSD: 95 T: 182 QT: 473 QTc: 441 Interpretive Statements Sinus rhythm Deep T wave inversions suggest acute anterolateral ischemia Compared to ECG 09/05/2020 12:26:36 No significant changes Electronically Signed On 09-07-2020 17:59:24 EDT by Isacc Hernandez
--- NOTE | 2020-09-08 10:59 | Electrocardiograph Report ---
[facility] Test Date: 2020-09-04 Test Time: 09:17:23 Pat Name: RAFIQ ENRIQUEZ Department: Room: A451 1 Gender: M Cloth Printing Utility Worker: VICENTA Mesa RN : 1955 Requested By: SHI GARCIA Order Number: [id number] Reading MD: Bayron Sterling Measurements Intervals [place] Rate: 68 P: 63 [place]: 158 QRS: 29 QRSD: 73 T: 164 QT: 409 QTc: 435 Interpretive Statements Sinus rhythm Probable left atrial enlargement Abnrm T, probable ischemia, anterolateral lds No previous ECG available for comparison Electronically Signed On 09-08-2020 10:59:15 EDT by Bayron Sterling
--- NOTE | 2020-09-08 11:01 | Electrocardiograph Report ---
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 Electronically Signed On 09-08-2020 11:00:57 EDT by Bayron Sterling
== END 2020-09-07 19:15 | disposition home or self-care (01) | DRG 287 ==
LOC: ED 09:06 → INTOOBSV 19:04 → 4A 19:04 → OBSVTOIN 09-06 09:47
PROVIDERS: ADMIT Internal Medicine; ATTEND Hospitalist
PROC: 4A023N7 Measurement of Cardiac Sampling and Pressure, Left Heart, Percutaneous Approach (ICD-10-PCS; principal; 2020-09-06)
PROC: B2111ZZ Fluoroscopy of Multiple Coronary Arteries using Low Osmolar Contrast (ICD-10-PCS; 2020-09-06)
PROC: B2151ZZ Fluoroscopy of Left Heart using Low Osmolar Contrast (ICD-10-PCS; 2020-09-06)
PROC: 4A023N7 Measurement of Cardiac Sampling and Pressure, Left Heart, Percutaneous Approach (ICD-10-PCS; 2020-09-07)
DX: I24.9 Acute ischemic heart disease, unspecified (principal); E78.00 Pure hypercholesterolemia, unspecified; I10 Essential (primary) hypertension; N40.0 Benign prostatic hyperplasia without lower urinary tract symptoms; F17.210 Nicotine dependence, cigarettes, uncomplicated; E11.9 Type 2 diabetes mellitus without complications; Z79.4 Long term (current) use of insulin; Z79.899 Other long term (current) drug therapy; Z83.3 Family history of diabetes mellitus
CPT/HCPCS: 36415; 71046; 78452; 80048; 80053; 82962; 83036; 84484; 85014; 85018; 85025; 85049; 85520; 85610; 85730; 92920; 93005; 93017; 93306; 93458; 96374; 99406; G0378; A9270-GY; A9502; C1769; C1887; C1894; J0360; J1644; J1815; J2250; J2785; J3010; J7030; J7040; Q9967